=== PATIENT | male | born 1960 | race Caucasian/White ===

== ENCOUNTER 2023-01-03 18:10 | Observation (INO) | payer SELFPAY ==
[2023-01-03 19:14] LABS: Absolute Neutrophil Ct (ANC) 15.61 x10^3/uL (1.4-6.9); BASOPHIL % 0.4 % (0.0-0.4); Basophil (Absolute #) 0.08 x10^3/uL (0-0.4); Eosinophil % 0.7 % (0.00-5.0); Eosinophil (Absolute #) 0.13 x10^3/uL (0-0.5); Hemoglobin 16.6 g/dL (12.5-18.0); IMMATURE GRAN # 0.13 x10^3u/L (0.00-0.03); IMMATURE GRAN % 0.7 % (0.00-0.4); Lymphocyte (Absolute #) 2.65 x10^3/uL (1.0-4.6); Lymphocytes % 13.3 % (24.0-44.0); Mean Cell Volume 83.2 fL (78-100); Mean Corpuscular Hemoglobin 28.2 pg (26-32); Mean Corpuscular Hgb Concent. 33.9 g/dL (32-36); Mean Platelet Volume 8.5 fL (7.5-11.0); Monocyte (Absolute #) 1.28 x10^3/uL (0.0-1.3); Monocytes % 6.4 % (0.0-12.0); Neutrophil % 78.5 % (36.0-66.0); Platelet Count 398 x10^3/uL (150-450); Red Blood Count 5.89 x10^6/uL (4.1-5.6); Red Cell Distribution Width 12.4 % (11.5-14.0); White Blood Count 19.9 x10^3/uL (4.0-10.5)
[2023-01-03 19:19] LABS: ALBUMIN 4.8 g/dL (3.5-5.0); BILIRUBIN,TOTAL 0.9 mg/dL (0.2-1.3); Calcium 9.9 mg/dL (8.4-10.2); Creatinine 1 1.93 mg/dL (0.66-1.25); EST GLOMERULAR FILTRATION RATE 37.7 ML/MIN; Total Protein 8.3 g/dL (6.3-8.2)
--- NOTE | 2023-01-03 20:20 | ERPHSYRPT ---
- History of Present Illness Time Seen by Provider: 01/03/23 20:15 Source: patient Exam Limitations: no limitations Patient Subjective Stated Complaint: PT HERE FOR WEAKNESS TO RIGHT ARM AND LEG STARTED WHILE DRIVING AT 1745. PT UNABLE TO BEAR WT ON RIGHT LEG, RIGHT ARM FL ACCID, SPEECH CLEAR . Triage Nursing Assessment: PT HERE FOR WEAKNESS TO RIGHT SIDE, STATES HAS BEEN OUT IN HEAT TODAY Physician History: Patient initially seen and evaluated by Dr. Corado. Dr. Corado entered the initial orders. NoteHowever Dr. Corado was unable to initiate. Per report patient is [id number] male presents to our ED for evaluation of flaccid paralysis of the right Arm and leg. Symptoms occurred while he was driving at approximately 1740 5 PM. Upon arrival to our ED patient was only unable to bear weight. However within approximately 10 minutes patient began to regain normal function. Patient had no other complaints. No trauma. No fever. No nausea vomiting or diaphoresis. No associated chest pain. Patient voiced no other complaints or concerns. Portions of this note were created with voice recognition technology. There may be grammatical, spelling, punctuation or sound alike errors Timing/Duration: today Severity: moderate Modifying Factors: Improves With: nothing Associated Symptoms: denies symptoms Allergies/Adverse Reactions: No Known Drug Allergies Allergy (Verified 01/03/23 18:13) Home Medications: Lisinopril 20 mg [Zestril 20 MG] 20 mg PO DAILY 01/03/23 [History] Hx Tetanus, Diphtheria Vaccination/Date Given: Yes Hx Influenza Vaccination/Date Given: No Hx Pneumococcal Vaccination/Date Given: No Immunizations Up to Date: Yes Travel Risk - International Travel Have you traveled outside of the country in past 3 weeks: No - Coronavirus Screening Are you exhibiting any of the following symptoms?: No - Vaccine Status Have you recieved a Covid-19 vaccination: No - Review of Systems Constitutional: No Symptoms, No Fever, No Chills Eyes: No Symptoms Ears, Nose, & Throat: No Symptoms Respiratory: No Symptoms, No Cough, No Dyspnea Cardiac: No Symptoms, No Chest Pain, No Edema, No Syncope Abdominal/Gastrointestinal: No Symptoms, No Abdominal Pain, No Nausea, No Vomiting, No Diarrhea Genitourinary Symptoms: No Symptoms, No Dysuria Musculoskeletal: No Symptoms, No Back Pain, No Neck Pain Skin: No Symptoms, No Rash Neurological: No Symptoms, No Dizziness, No Focal Weakness, No Sensory Changes Psychological: No Symptoms Endocrine: No Symptoms Hematologic/Lymphatic: No Symptoms Immunological/Allergic: No Symptoms All Other Systems: Reviewed and Negative - Past Medical History Pertinent Past Medical History: Yes Cardiac History: Hypertension - Past Surgical History Past Surgical History: Yes Gastrointestinal: Hernia Repair Other Surgical History: rt thumb--graft. hannah bilat arms - Social History Smoking Status: Former smoker Exposure to second hand smoke: No Drug Use: none Patient Lives Alone: No - Nursing Vital Signs Nursing Vital Signs: Initial Vital Signs Pulse Rate 62 01/03/23 17:49 Respiratory Rate 21 01/03/23 17:49 Blood Pressure 129/47 01/03/23 17:49 O2 Sat by Pulse Oximetry 58 L 01/03/23 17:49 Pain Scale Pain Intensity 0 - Physical Exam General Appearance: no apparent distress, alert Eye Exam: PERRL/EOMI, eyes nml inspection Ears, Nose, Throat Exam: normal ENT inspection, TMs normal, pharynx normal, moist mucous membranes Neck Exam: normal inspection, non-tender, supple, full range of motion Respiratory Exam: normal breath sounds, lungs clear, airway intact, No respiratory distress Cardiovascular Exam: regular rate/rhythm, normal heart sounds, normal peripheral pulses Gastrointestinal/Abdomen Exam: soft, normal bowel sounds, No tenderness, No mass Back Exam: normal inspection, normal range of motion, No CVA tenderness, No vertebral tenderness Extremity Exam: normal inspection, normal range of motion, pelvis stable Neurologic Exam: alert, oriented x 3, cooperative, normal mood/affect, nml cerebellar function, nml station & gait, sensation nml, No motor deficits Skin Exam: normal color, warm, dry, No rash Lymphatic Exam: No adenopathy SpO2 Interpretation: normal SpO2: 94 O2 Delivery: Room Air - Course Nursing assessment & vital signs reviewed: Yes - CT Exams Head CT Interpretation: Tele-radiologist Report (CT head reveals no comps. Remote lacunar infarct left caudate head nothing acute) Ordered Tests: Active Orders 24 hr Category Date Time Status HEAD WITHOUT CONTRAST [CT] Stat Exams 01/03/23 18:11 Taken BLOOD CULTURE Stat Lab 01/03/23 Ordered CBC W DIFF Stat Lab 01/03/23 19:11 Completed CMP Stat Lab 01/03/23 19:11 Completed TROPONIN Q4H Lab 01/03/23 19:11 Completed TROPONIN Q4H Lab 01/03/23 23:15 Ordered Transfer Order Routine Transfer 01/03/23 Ordered Lab/Rad Data: Laboratory Result Diagrams 01/03/23 19:11 01/03/23 19:11 Laboratory Results 01/03/23 01/03/23 01/03/23 Range/Units 19:11 19:11 19:11 WBC 19.9 H (4.0-10.5) x10^3/uL RBC 5.89 H (4.1-5.6) x10^6/uL Hgb 16.6 (12.5-18.0) g/dL Hct 49.0 (42-50) % MCV 83.2 (78-100) fL MCH 28.2 (26-32) pg MCHC 33.9 (32-36) g/dL RDW 12.4 (11.5-14.0) % Plt Count 398 (150-450) x10^3/uL MPV 8.5 (7.5-11.0) fL Gran % 78.5 H (36.0-66.0) % Immature Gran % (Auto) 0.7 H (0.00-0.4) % Nucleat RBC Rel Count 0.0 (0.00-0.1) % Eos # (Auto) 0.13 (0-0.5) x10^3/uL Immature Gran # (Auto) 0.13 H (0.00-0.03) x10^3u/L Absolute Lymphs (auto) 2.65 (1.0-4.6) x10^3/uL Absolute Monos (auto) 1.28 (0.0-1.3) x10^3/uL Absolute Nucleated RBC 0.00 (0.00-0.01) x10^3u/L Lymphocytes % 13.3 L (24.0-44.0) % Monocytes % 6.4 (0.0-12.0) % Eosinophils % 0.7 (0.00-5.0) % Basophils % 0.4 (0.0-0.4) % Absolute Granulocytes 15.61 H (1.4-6.9) x10^3/uL Basophils # 0.08 (0-0.4) x10^3/uL Sodium 139 (137-145) mmol/L Potassium 4.0 (3.5-5.1) mmol/L Chloride 100 (98-107) mmol/L Carbon Dioxide 27 (22-30) mmol/L Anion Gap 16.0 H (5-15) MEQ/L BUN 19 (9-20) mg/dL Creatinine 1.93 H (0.66-1.25) mg/dL Estimated GFR 37.7 ML/MIN Glucose 140 H (74-106) mg/dL Calcium 9.9 (8.4-10.2) mg/dL Total Bilirubin 0.90 (0.2-1.3) mg/dL AST 30 (17-59) U/L ALT 31 (0-50) U/L Alkaline Phosphatase 84 (38-126) U/L Troponin I < 0.012 (0.000-0.034) ng/mL Serum Total Protein 8.3 H (6.3-8.2) g/dL Albumin 4.8 (3.5-5.0) g/dL - Progress Progress: improved Progress Note: 62-year-old male presents to our ED with flaccid paralysis right upper lower extremity. Symptoms resolved shortly after arriving to our ED. Test ordered include CT head CBC CMP troponin. Patient initially seen and examined by Dr. Corado. Dr. Corado entered the associated orders. CT head reveals a remote lacunar infarct at the left caudate head. CBC reveals a leukocytosis of 19.9. Patient afebrile. The cause of the leukocytosis is unclear. However we ordered blood cultures in the event patient spikes a fever/in the event that there is a infection that has not fully declared itself. CMP reveals a creatinine 1.93. We do not have any previous information so it is unclear whether this is new or patient's baseline. Initial troponin negative.Telemetry neuro was consulted. Per telemetry neuro recommendations patient will be admitted for further evaluation and treatment.Case discussed with Dr. Solano hospitalist who excepts admission at 7:25 PM.Plan of care discussed with patient. He agrees to admission to [facility] for further evaluation and treatment.Patient will receive IV fluids and aspirin. Complexity of problem addressed is moderate acute complicated No critical care time Complexity data reviewed and analyzed is extensive. Test ordered. Test reviewed and analyzed. Clinical correlation made between findings of laboratory work-up CAT scan and physical exam findings. Teleneurologist consulted. I spoke to teleneurology personally regarding the findings and her recommendations. Plan of care also discussed with Dr. Solano hospitalist who excepts admission to observation. Risk of complication and or risk of morbidity/mortality of patient management is high. Patient will require hospitalization for further evaluation and treatme nt of TIA. Patient will be admitted to [facility]. He agrees to plan of care. Vital stable. Time to admit patient is approximately 15 minutes. Plan of care established for shared decision making. Patient voices no other complaints or concerns at this time. 01/03/23 20:20 Discussed with DrAurelio: Other Will see patient in: hospital (observation) Counseled pt/family regarding: lab results, diagnosis, rad results - Departure Departure Disposition: Observation Clinical Impression: TIA (transient ischemic attack), Elevated serum creatinine, Leukocytosis Condition: Stable Critical Care Time: No Referrals: NBA BILL MD [Primary Care Provider] - Follow up/PCP as directed
[2023-01-03] MEDS ORDERED: BABY ASPIRIN 81 MG CHEW PO ONE (20:34)
[2023-01-03] MEDS ORDERED: BABY ASPIRIN 81 MG CHEW ONE (20:37)
[2023-01-03] MEDS: Sodium Chloride 0.9% 1000 ML 1,000 ML IV SCH ×2 (20:38→21:47)
[2023-01-03] MEDS ORDERED: TYLENOL 325 MG PO PRN (20:51)
[2023-01-03] MEDS ORDERED: Senokot-S Tablet PO PRN (20:51)
[2023-01-03] MEDS ORDERED: MAALOX ES 30 ML UNIT DOSE PO PRN (20:51)
[2023-01-03] MEDS ORDERED: Zofran 4 MG/2 ML VIAL IV PRN (20:51)
[2023-01-03] MEDS ORDERED: MILK OF MAGNESIA 30 ML PO PRN (20:51)
[2023-01-03] MEDS ORDERED: VENTOLIN COMMON CANISTER IH PRN (22:05)
--- NOTE | 2023-01-04 00:53 | PCM.HP ---
History of Present Illness - Chief Complaint Chief Complaint: TIA Date: 01/04/23 History of Present Illness: Mr. Sullivan is a 62 year-old gentleman with HTN and a prior CVA who presents with signs and symptoms concerning for a CVA. He states that he was driving after a long day working outside when he suddenly felt his right arm and leg go numb with weakness along with experiencing slurred speech. He had stopped on the side of the road to respond to a text from his son when all this started. Subsequent to his symptoms starting, he lifted his right leg with his left arm in order press on the gas to get to his destination, and eventually he presented to [place] for further medical attention. It was not until after his CT head was completed that his symptoms started to resolve - reason why he did not receive thrombolytic therapy after being evaluated by Neurology. Laboratory data revealed a Cr of 1.93 and a WBC of 19.9K while official CT head read is pending (there is mention of a prior lacunar CVA). On my examination, his symptoms have all resolved, and he currently denies fevers, chills, nausea, vomiting, diarrhea, syncope, presyncope, visual changes, orthopnea, PND, odynophagia, dysphagia, chest pain, shortness of breath, belly pain, dysuria, hematuria, melena, hematochezia, or neurological changes. All other systems were reviewed and were negative. His vitals are stable. - Review of Systems Constitutional: Other (As per HPI) Medications & Allergies Home Medications: Home Medication List Lisinopril 20 mg [Zestril 20 MG] 20 mg PO DAILY 01/03/23 [History Confirmed 01/03/23] Allergies/Adverse Reactions: Allergies Allergy/AdvReac Type Severity Reaction Status Date / Time No Known Drug Allergies Allergy Verified 01/03/23 18:13 - Past Medical History Past Medical History: Yes Neurological History: No Pertinent History ENT History: No Pertinent History Cardiac History: Hypertension Endocrine Medical History: No Pertinent History Musculoskelatal History: No Pertinent History GI Medical History: No Pertinent History History: No Pertinent History Pyscho-Social History: No Pertinent History Male Reproductive Disorders: No Pertinent History - Past Surgical History Past Surgical History: Yes Neuro Surgical History: No Pertinent History Cardiac History: No Pertinent History Respiratory Surgery: No Pertinent History GI Surgical History: Hernia Repair Genitourinary Surgical Hx: No Pertinent History Musculskeletal Surgical Hx: No Pertinent History Male Surgical History: No Pertinent History Other Surgical History: rt thumb--graft. hannah bilat arms - Social History Smoking Status: Never smoker Exposure to second hand smoke: No Alcohol: None Drug Use: none - Physical Exam Vital Signs: Vital Signs - 24 hr Temp Pulse Resp BP BP Pulse Ox 01/03/23 23:52 97.9 F 84 18 122/78 95 01/03/23 22:09 94 L 01/03/23 22:07 94 L 01/03/23 20:59 98.2 F 90 18 177/86 97 01/03/23 20:51 97 01/03/23 20:35 94 L 01/03/23 20:05 58 L 16 183/68 94 L 01/03/23 20:04 61 17 97 01/03/23 20:00 64 19 94 L 01/03/23 19:50 65 21 95 01/03/23 19:40 69 21 94 L 01/03/23 19:30 68 20 95 01/03/23 19:21 76 19 89 L 01/03/23 19:10 61 19 96 01/03/23 19:02 68 18 73 L 01/03/23 18:11 97.2 F 112 H 18 153/83 94 L 01/03/23 17:49 62 21 129/47 58 L General Appearance: no apparent distress, alert Neurologic Exam: alert, oriented x 3, cooperative, normal mood/affect, nml cerebellar function, nml station & gait, sensation nml, No motor deficits Eye Exam: PERRL/EOMI, eyes nml inspection Ears, Nose, Throat Exam: normal ENT inspection, TMs normal, pharynx normal, moist mucous membranes Neck Exam: normal inspection, non-tender, supple, full range of motion Respiratory Exam: normal breath sounds, lungs clear, No respiratory distress Cardiovascular Exam: regular rate/rhythm, normal heart sounds, normal peripheral pulses Gastrointestinal/Abdomen Exam: soft, normal bowel sounds, No tenderness, No mass Back Exam: normal inspection, normal range of motion, No CVA tenderness, No vertebral tenderness Extremity Exam: normal inspection, normal range of motion, pelvis stable Skin Exam: normal color, warm, dry, No rash Lymphatic Exam: No adenopathy Results - Labs Lab/Micro Results: Lab Results-Last 24 Hours 01/03/23 01/03/23 01/03/23 Range/Units 19:11 19:11 19:11 WBC 19.9 H (4.0-10.5) x10^3/uL RBC 5.89 H (4.1-5.6) x10^6/uL Hgb 16.6 (12.5-18.0) g/dL Hct 49.0 (42-50) % MCV 83.2 (78-100) fL MCH 28.2 (26-32) pg MCHC 33.9 (32-36) g/dL RDW 12.4 (11.5-14.0) % Plt Count 398 (150-450) x10^3/uL MPV 8.5 (7.5-11.0) fL Gran % 78.5 H (36.0-66.0) % Immature Gran % (Auto) 0.7 H (0.00-0.4) % Nucleat RBC Rel Count 0.0 (0.00-0.1) % Eos # (Auto) 0.13 (0-0.5) x10^3/uL Immature Gran # (Auto) 0.13 H (0.00-0.03) x10^3u/L Absolute Lymphs (auto) 2.65 (1.0-4.6) x10^3/uL Absolute Monos (auto) 1.28 (0.0-1.3) x10^3/uL Absolute Nucleated RBC 0.00 (0.00-0.01) x10^3u/L Lymphocytes % 13.3 L (24.0-44.0) % Monocytes % 6.4 (0.0-12.0) % Eosinophils % 0.7 (0.00-5.0) % Basophils % 0.4 (0.0-0.4) % Absolute Granulocytes 15.61 H (1.4-6.9) x10^3/uL Basophils # 0.08 (0-0.4) x10^3/uL Sodium 139 (137-145) mmol/L Potassium 4.0 (3.5-5.1) mmol/L Chloride 100 (98-107) mmol/L Carbon Dioxide 27 (22-30) mmol/L Anion Gap 16.0 H (5-15) MEQ/L BUN 19 (9-20) mg/dL Creatinine 1.93 H (0.66-1.25) mg/dL Estimated GFR 37.7 ML/MIN Glucose 140 H (74-106) mg/dL Calcium 9.9 (8.4-10.2) mg/dL Total Bilirubin 0.90 (0.2-1.3) mg/dL AST 30 (17-59) U/L ALT 31 (0-50) U/L Alkaline Phosphatase 84 (38-126) U/L Troponin I < 0.012 (0.000-0.034) ng/mL Serum Total Protein 8.3 H (6.3-8.2) g/dL Albumin 4.8 (3.5-5.0) g/dL 01/03/23 Range/Units 23:26 WBC (4.0-10.5) x10^3/uL RBC (4.1-5.6) x10^6/uL Hgb (12.5-18.0) g/dL Hct (42-50) % MCV (78-100) fL MCH (26-32) pg MCHC (32-36) g/dL RDW (11.5-14.0) % Plt Count (150-450) x10^3/uL MPV (7.5-11.0) fL Gran % (36.0-66.0) % Immature Gran % (Auto) (0.00-0.4) % Nucleat RBC Rel Count (0.00-0.1) % Eos # (Auto) (0-0.5) x10^3/uL Immature Gran # (Auto) (0.00-0.03) x10^3u/L Absolute Lymphs (auto) (1.0-4.6) x10^3/uL Absolute Monos (auto) (0.0-1.3) x10^3/uL Absolute Nucleated RBC (0.00-0.01) x10^3u/L Lymphocytes % (24.0-44.0) % Monocytes % (0.0-12.0) % Eosinophils % (0.00-5.0) % Basophils % (0.0-0.4) % Absolute Granulocytes (1.4-6.9) x10^3/uL Basophils # (0-0.4) x10^3/uL Sodium (137-145) mmol/L Potassium (3.5-5.1) mmol/L Chloride (98-107) mmol/L Carbon Dioxide (22-30) mmol/L Anion Gap (5-15) MEQ/L BUN (9-20) mg/dL Creatinine (0.66-1.25) mg/dL Estimated GFR ML/MIN Glucose (74-106) mg/dL Calcium (8.4-10.2) mg/dL Total Bilirubin (0.2-1.3) mg/dL AST (17-59) U/L ALT (0-50) U/L Alkaline Phosphatase (38-126) U/L Troponin I < 0.012 (0.000-0.034) ng/mL Serum Total Protein (6.3-8.2) g/dL Albumin (3.5-5.0) g/dL - Radiology Impressions Radiology Exams & Impressions: Radiology Procedures Category Date Time Status HEAD WITHOUT CONTRAST [CT] Stat Exams 01/03/23 18:11 Taken - Other Procedures and Tests Respiratory Therapy 01/03/23 22:07 Respiratory Therapy Assessment DAILY 01/03/23 22:23 EKG ROUTINE Assessment/Plan (1) TIA (transient ischemic attack) Current Visit: Yes Status: Acute Assessment & Plan: ASSESSMENT 1. Acute Cerebrovascular Accident 2. Acute vs. Acute on Chronic vs. Chronic Kidney Disease 3. Leukocytosis 4. Hypertension PLAN 1. Fluids 2. ASA daily 3. Lipid panel in AM; statin started 4. CTA Head and Neck 5. MRI 6. Echo with Bubble SQ Heparin/PPI The entirety of this encounter was done via telemedicine Gavin Solano MD Pulmonary and Critical Care Medicine Code(s): G45.9 - TRANSIENT CEREBRAL ISCHEMIC ATTACK, UNSPECIFIED Telemedicine Encounter - Telemedicine Encounter Telemedicine Encounter: The entirety of this encounter was performed via Telemedicine"
[2023-01-04 04:58] LABS: Absolute Neutrophil Ct (ANC) 9.23 x10^3/uL (1.4-6.9); BASOPHIL % 0.6 % (0.0-0.4); Basophil (Absolute #) 0.08 x10^3/uL (0-0.4); Eosinophil % 2.2 % (0.00-5.0); Eosinophil (Absolute #) 0.32 x10^3/uL (0-0.5); Hematocrit 44.8 % (42-50); Hemoglobin 14.9 g/dL (12.5-18.0); IMMATURE GRAN # 0.07 x10^3u/L (0.00-0.03); IMMATURE GRAN % 0.5 % (0.00-0.4); Lymphocyte (Absolute #) 3.78 x10^3/uL (1.0-4.6); Lymphocytes % 26.2 % (24.0-44.0); Mean Cell Volume 83.4 fL (78-100); Mean Corpuscular Hemoglobin 27.7 pg (26-32); Mean Corpuscular Hgb Concent. 33.3 g/dL (32-36); Mean Platelet Volume 8.3 fL (7.5-11.0); Monocyte (Absolute #) 0.96 x10^3/uL (0.0-1.3); Monocytes % 6.6 % (0.0-12.0); Neutrophil % 63.9 % (36.0-66.0); Platelet Count 334 x10^3/uL (150-450); Red Blood Count 5.37 x10^6/uL (4.1-5.6); Red Cell Distribution Width 12.7 % (11.5-14.0); White Blood Count 14.4 x10^3/uL (4.0-10.5)
[2023-01-04 05:33] LABS: ALBUMIN 3.8 g/dL (3.5-5.0); ALKALINE PHOSPHATASE 66 U/L (38-126); ANION GAP 12.8 MEQ/L (5-15); BLOOD UREA NITROGEN 17 mg/dL (9-20); CHLORIDE 103 mmol/L (98-107); Calcium 8.5 mg/dL (8.4-10.2); Carbon Dioxide 27 mmol/L (22-30); Cholesterol 232 mg/dL (50-200); Creatinine 1 1.07 mg/dL (0.66-1.25); EST GLOMERULAR FILTRATION RATE > 60.0 ML/MIN; Glucose 101 mg/dL (74-106); HDL CHOLESTEROL 35 mg/dL (40-60); LDL, DIRECT 159 mg/dL (30-100); MAGNESIUM 2.2 mg/dL (1.6-2.3); Potassium 3.6 mmol/L (3.5-5.1); Risk Ratio 6.7; SGOT/AST 24 U/L (17-59); SGPT/ALT 25 U/L (0-50); SODIUM 139 mmol/L (137-145); TRIGLYCERIDE 153 mg/dL (30-150); Total Protein 6.9 g/dL (6.3-8.2)
[2023-01-04] MEDS: Sodium Chloride 0.9% 1000 ML 1,000 ML IV SCH (07:31)
--- NOTE | 2023-01-04 08:44 | XRAY ---
Indication: Right-sided weakness. Heat stroke. Multiple contiguous axial images obtained through the head without contrast. Comparison: None Several images are slightly degraded by motion artifact. Age-appropriate global atrophy. Remote lacunar infarct left caudate head. No gross acute intracranial hemorrhage, abnormal extra-axial fluid collection, or mass effect. Fourth ventricle is midline without hydrocephalus. Smith-white matter differentiation preserved. Bony calvarium intact. Visualized paranasal sinuses and mastoid air cells are clear. Impression: Motion artifact. Remote lacunar infarct left basal ganglia. No gross acute intracranial abnormalities.
[2023-01-04] MEDS ORDERED: Zestril 20 MG PO SCH (10:00)
[2023-01-04] MEDS ORDERED: BABY ASPIRIN 81 MG CHEW PO SCH (10:00)
[2023-01-04] MEDS ORDERED: HEPARIN 5000 UNITS/0.5 ML (HIGH RISK MED) SQ SCH (10:00)
[2023-01-04] MEDS ORDERED: ECOTRIN 81 MG PO SCH (10:00)
--- NOTE | 2023-01-04 11:17 | XRAY ---
Indication: CVA. Heat stroke. Sagittal, coronal, and axial MRI brain performed using pre-and post T1, T2, FLAIR, diffusion, and ADC sequences. 15 cc Dotarem contrast used. Comparison: None Age-appropriate global atrophy and minimal periventricular degenerative micro-ischemia signal bilaterally. Diffusion images demonstrates a few left parietal and lesser degree bilateral occipital lobe cortical/subcortical petechial restricted signal favoring acute micro-ischemia. Negative for large vessel territory stroke. No acute intracranial hemorrhage, abnormal extra-axial fluid collection. Fourth ventricle is midline without hydrocephalus. 7/8 cranial nerve complex bilaterally symmetric. Normal flow void signal within the major intracerebral circulation. Normal appearing craniocervical junction and sella turcica. Visualized paranasal sinuses are clear. Impression: 1. A few foci acute micro-ischemia left parietal and lesser degree bilateral occipital lobes. No acute hemorrhage/mass effect. 2. Atrophy and degenerative micro-ischemia within normal limits for patient's age.
--- NOTE | 2023-01-04 12:39 | XRAY ---
Indication: TIA. Conventional contrast enhanced CTA neck performed using 80 cc Isovue 370 contrast. 2-D sagittal and coronal reformatted images obtained. Additional 3-D reformatted images obtained using a separate workstation. Comparison: None Visualized aortic arch demonstrates minimal punctate arteriosclerotic calcification without aneurysm/dissection. Widely patent branch right brachiocephalic, left common carotid, and left subclavian arteries. Examination of the right carotid circulation demonstrates widely patent common carotid, carotid bulb, and external carotid arteries. Proximal internal carotid artery demonstrates heterogeneous plaquing producing 80-90% stenosis. Examination of the left carotid circulation demonstrates widely patent common carotid and internal carotid arteries. Carotid bulb demonstrates heterogeneous plaquing producing 70-80% stenosis. This further extends into the origin/proximal external carotid artery producing less than 50% stenosis. Vertebral arteries are bilaterally patent with the right vertebral artery slightly larger in caliber. Visualized soft tissues demonstrates 5 mm right thyroid hypodense nodule/cyst. Parotid and submandibular glands are bilaterally symmetric. Small scattered subcentimeter cervical and submandibular lymph nodes bilaterally. No pathologic lymphadenopathy. Supra-and infraglottic airway widely patent. Normal epiglottis. Lung apices demonstrate pulmonary emphysema. Osseous structures intact with minimal C5-C7 degenerative changes. Patient is edentulous. Impression: 1. Arteriosclerotic disease proximal right internal carotid artery producing 80-90% stenosis. 2. Arteriosclerotic disease left carotid bulb producing 70-80 % stenosis and left external carotid artery producing less than 50% stenosis. 3. Incidental pulmonary emphysema, tiny right thyroid hypodense nodule/cyst, and C5-C7 degenerative changes.
--- NOTE | 2023-01-04 12:45 | XRAY ---
Indication: TIA. Initial CT head performed without contrast. Than conventional contrast enhanced CTA head performed using 80 cc Isovue 370 contrast. 2-D sagittal and coronal reformatted images obtained. Additional 3-D reformatted images obtained using a separate workstation. Comparison: CT head one day earlier. Initial CT head without contrast unchanged again demonstrating age-appropriate global atrophy and remote lacunar infarct left caudate head. No new/acute intracranial abnormalities. CTA demonstrates minimal scattered arteriosclerotic calcifications in both parasellar internal carotid arteries without critical stenosis, obstruction, or AV malformation. Normal carotid terminus with normal branching A1 and M1 segments bilaterally. More distal anterior cerebral, middle cerebral, and posterior communicating arteries are normal in CTA appearance. Posterior circulation demonstrates normal CTA appearance to the basilar, left/right posterior cerebral, left/right superior cerebellar, and left/right anterior inferior cerebellar arteries. Venous sinuses/drainage unremarkable. Brain parenchyma is negative for abnormal enhancing intra or extra-axial mass. Impression: 1. Stable CT head without contrast exam again demonstrating remote lacunar infarct left caudate head. No new/acute intracranial abnormalities. 2. CTA head demonstrates minimal arteriosclerotic calcifications in both parasellar internal carotid arteries without critical stenosis/obstruction. 3. Remaining CTA head is negative.
[2023-01-04 14:47] LABS: Appearance Clear (Clear); Bilirubin Negative (Negative); Blood Moderate (Negative); Glucose, Urine Negative (Negative); Hyaline Casts NONE SEEN /LPF (0-2); Ketones Negative (Negative); Leukocyte Esterase Negative (Negative); Nitrite Negative (Negative); Protein,Urine Dip Negative (Negative); Specific Gravity >=1.030 (1.005-1.030); WBC 0-2 /HPF (0-5)
[2023-01-04 15:07] LABS: ADD URINE CULTURE? NO (NO); Bacteria Rare /HPF (None Seen); Epithelial Cells Rare /HPF (None Seen)
[2023-01-04] MEDS ORDERED: PLAVIX Tablet PO ONE (16:11)
[2023-01-04 16:25] VITALS: BP 180/86; PULSE 87; O2SAT 96
--- NOTE | 2023-01-04 16:34 | PCM.DS ---
Discharge Summary Date of Admission: 01/03/23 20:39 Date of Discharge: 01/04/23 Admitting Physician: NESSA GONZALEZ MD Consults: Consults on Case 01/04/23 11:43 Consult Neurology ROUTINE Primary Care Provider: NBA BILL Allergies Allergies No Known Drug Allergies Allergy (Verified 01/03/23 18:13) Hospital Summary - Hospital Course Hospital Course: CTA reviewed and demonstrated significant bilateral carotid artery stenosis. Teleneurology consultation completed and I have directly discussed the plan of care with the neurologist via telephone. There was an initial recommendation for Holter monitor placement which has been discontinued after noting the CTA results. Due to the patient's significant risk of another vascular event, an attempt was made to transfer the patient to be assessed by vascular surgery for consideration of carotid endarterectomy; however, the patient's transfer was not accepted due to the recommendation for standard outpatient assessment. We have secured an appointment with vascular surgery tomorrow morning. Given that carotid endarterectomy is not immediately being considered, the decision has been made to Plavix load the patient and initiate dual antiplatelet therapy (Plavix 75 mg daily and ASA 81 mg daily), which may need to be suspended prior to any scheduled vascular procedure. I have had an extensive discussion with the patient and multiple family members about this plan, and the patient's high risk for another vascular event. He expressed understanding about the importance of medical compliance, follow up, and immediate reassessment if he experiences any new neurological symptoms. The patient also will be discharged with Zocor 40 mg daily. - Vitals & Intake/Output Vital Signs: Vital Signs Temperature 97.7 F 01/04/23 16:00 Pulse Rate 87 01/04/23 16:00 Respiratory Rate 18 01/04/23 16:00 Blood Pressure 180/86 01/04/23 16:00 O2 Sat by Pulse Oximetry 96 01/04/23 16:00 Intake & Output: Intake & Output 01/02/23 01/03/23 01/04/23 01/05/23 11:59 11:59 11:59 11:59 Intake Total 480 Output Total 100 550 Balance 380 -550 Weight 80.4 kg - Lab Result Diagrams: 01/04/23 04:25 01/04/23 04:25 Lab Results-Last 24 Hrs: Lab Results-Last 24 Hours 01/03/23 01/03/2323 Range/Units 19:11 19:11 19:11 WBC 19.9 H (4.0-10.5) x10^3/uL RBC 5.89 H (4.1-5.6) x10^6/uL Hgb 16.6 (12.5-18.0) g/dL Hct 49.0 (42-50) % MCV 83.2 (78-100) fL MCH 28.2 (26-32) pg MCHC 33.9 (32-36) g/dL RDW 12.4 (11.5-14.0) % Plt Count 398 (150-450) x10^3/uL MPV 8.5 (7.5-11.0) fL Gran % 78.5 H (36.0-66.0) % Immature Gran % (Auto) 0.7 H (0.00-0.4) % Nucleat RBC Rel Count 0.0 (0.00-0.1) % Eos # (Auto) 0.13 (0-0.5) x10^3/uL Immature Gran # (Auto) 0.13 H (0.00-0.03) x10^3u/L Absolute Lymphs (auto) 2.65 (1.0-4.6) x10^3/uL Absolute Monos (auto) 1.28 (0.0-1.3) x10^3/uL Absolute Nucleated RBC 0.00 (0.00-0.01) x10^3u/L Lymphocytes % 13.3 L (24.0-44.0) % Monocytes % 6.4 (0.0-12.0) % Eosinophils % 0.7 (0.00-5.0) % Basophils % 0.4 (0.0-0.4) % Absolute Granulocytes 15.61 H (1.4-6.9) x10^3/uL Basophils # 0.08 (0-0.4) x10^3/uL Sodium 139 (137-145) mmol/L Potassium 4.0 (3.5-5.1) mmol/L Chloride 100 (98-107) mmol/L Carbon Dioxide 27 (22-30) mmol/L Anion Gap 16.0 H (5-15) MEQ/L BUN 19 (9-20) mg/dL Creatinine 1.93 H (0.66-1.25) mg/dL Estimated GFR 37.7 ML/MIN Glucose 140 H (74-106) mg/dL Calcium 9.9 (8.4-10.2) mg/dL Magnesium (1.6-2.3) mg/dL Total Bilirubin 0.90 (0.2-1.3) mg/dL AST 30 (17-59) U/L ALT 31 (0-50) U/L Alkaline Phosphatase 84 (38-126) U/L Troponin I < 0.012 (0.000-0.034) ng/mL Serum Total Protein 8.3 H (6.3-8.2) g/dL Albumin 4.8 (3.5-5.0) g/dL Triglycerides (30-150) mg/dL Cholesterol (50-200) mg/dL LDL Cholesterol (30-100) mg/dL HDL Cholesterol (40-60) mg/dL Heart Disease Risk Ratio Urine Color (Yellow) Urine Appearance (Clear) Urine pH (4.6-8.0) Ur Specific Watson (1.005-1.030) Urine Protein (Negative) Urine Glucose (UA) (Negative) mg/dL Urine Ketones (Negative) Urine Blood (Negative) Urine Nitrite (Negative) Urine Bilirubin (Negative) Urine Urobilinogen (0.2) mg/dL Ur Leukocyte Esterase (Negative) U Hyaline Cast (Auto) (0-2) /LPF Urine Microscopic RBC (0-5) /HPF Urine Microscopic WBC (0-5) /HPF Ur Epithelial Cells (None Seen) /HPF Urine Bacteria (None Seen) /HPF Urine Culture Reflexed (NO) 01/03/23 01/04/23 01/04/23 Range/Units 23:26 04:25 04:25 WBC 14.4 H (4.0-10.5) x10^3/uL RBC 5.37 (4.1-5.6) x10^6/uL Hgb 14.9 (12.5-18.0) g/dL Hct 44.8 (42-50) % MCV 83.4 (78-100) fL MCH 27.7 (26-32) pg MCHC 33.3 (32-36) g/dL RDW 12.7 (11.5-14.0) % Plt Count 334 (150-450) x10^3/uL MPV 8.3 (7.5-11.0) fL Gran % 63.9 (36.0-66.0) % Immature Gran % (Auto) 0.5 H (0.00-0.4) % Nucleat RBC Rel Count 0.0 (0.00-0.1) % Eos # (Auto) 0.32 (0-0.5) x10^3/uL Immature Gran # (Auto) 0.07 H (0.00-0.03) x10^3u/L Absolute Lymphs (auto) 3.78 (1.0-4.6) x10^3/uL Absolute Monos (auto) 0.96 (0.0-1.3) x10^3/uL Absolute Nucleated RBC 0.00 (0.00-0.01) x10^3u/L Lymphocytes % 26.2 (24.0-44.0) % Monocytes % 6.6 (0.0-12.0) % Eosinophils % 2.2 (0.00-5.0) % Basophils % 0.6 (0.0-0.4) % Absolute Granulocytes 9.23 H (1.4-6.9) x10^3/uL Basophils # 0.08 (0-0.4) x10^3/uL Sodium 139 (137-145) mmol/L Potassium 3.6 (3.5-5.1) mmol/L Chloride 103 (98-107) mmol/L Carbon Dioxide 27 (22-30) mmol/L Anion Gap 12.8 (5-15) MEQ/L BUN 17 (9-20) mg/dL Creatinine 1.07 (0.66-1.25) mg/dL Estimated GFR > 60.0 ML/MIN Glucose 101 (74-106) mg/dL Calcium 8.5 (8.4-10.2) mg/dL Magnesium 2.2 (1.6-2.3) mg/dL Total Bilirubin 0.70 (0.2-1.3) mg/dL AST 24 (17-59) U/L ALT 25 (0-50) U/L Alkaline Phosphatase 66 (38-126) U/L Troponin I < 0.012 (0.000-0.034) ng/mL Serum Total Protein 6.9 (6.3-8.2) g/dL Albumin 3.8 (3.5-5.0) g/dL Triglycerides 153 H (30-150) mg/dL Cholesterol 232 H (50-200) mg/dL LDL Cholesterol 159 H (30-100) mg/dL HDL Cholesterol 35 L (40-60) mg/dL Heart Disease Risk Ratio 6.7 Urine Color (Yellow) Urine Appearance (Clear) Urine pH (4.6-8.0) Ur Specific Watson (1.005-1.030) Urine Protein (Negative) Urine Glucose (UA) (Negative) mg/dL Urine Ketones (Negative) Urine Blood (Negative) Urine Nitrite (Negative) Urine Bilirubin (Negative) Urine Urobilinogen (0.2) mg/dL Ur Leukocyte Esterase (Negative) U Hyaline Cast (Auto) (0-2) /LPF Urine Microscopic RBC (0-5) /HPF Urine Microscopic WBC (0-5) /HPF Ur Epithelial Cells (None Seen) /HPF Urine Bacteria (None Seen) /HPF Urine Culture Reflexed (NO) 01/04/23 Range/Units 14:27 WBC (4.0-10.5) x10^3/uL RBC (4.1-5.6) x10^6/uL Hgb (12.5-18.0) g/dL Hct (42-50) % MCV (78-100) fL MCH (26-32) pg MCHC (32-36) g/dL RDW (11.5-14.0) % Plt Count (150-450) x10^3/uL MPV (7.5-11.0) fL Gran % (36.0-66.0) % Immature Gran % (Auto) (0.00-0.4) % Nucleat RBC Rel Count (0.00-0.1) % Eos # (Auto) (0-0.5) x10^3/uL Immature Gran # (Auto) (0.00-0.03) x10^3u/L Absolute Lymphs (auto) (1.0-4.6) x10^3/uL Absolute Monos (auto) (0.0-1.3) x10^3/uL Absolute Nucleated RBC (0.00-0.01) x10^3u/L Lymphocytes % (24.0-44.0) % Monocytes % (0.0-12.0) % Eosinophils % (0.00-5.0) % Basophils % (0.0-0.4) % Absolute Granulocytes (1.4-6.9) x10^3/uL Basophils # (0-0.4) x10^3/uL Sodium (137-145) mmol/L Potassium (3.5-5.1) mmol/L Chloride (98-107) mmol/L Carbon Dioxide (22-30) mmol/L Anion Gap (5-15) MEQ/L BUN (9-20) mg/dL Creatinine (0.66-1.25) mg/dL Estimated GFR ML/MIN Glucose (74-106) mg/dL Calcium (8.4-10.2) mg/dL Magnesium (1.6-2.3) mg/dL Total Bilirubin (0.2-1.3) mg/dL AST (17-59) U/L ALT (0-50) U/L Alkaline Phosphatase (38-126) U/L Troponin I (0.000-0.034) ng/mL Serum Total Protein (6.3-8.2) g/dL Albumin (3.5-5.0) g/dL Triglycerides (30-150) mg/dL Cholesterol (50-200) mg/dL LDL Cholesterol (30-100) mg/dL HDL Cholesterol (40-60) mg/dL Heart Disease Risk Ratio Urine Color Yellow (Yellow) Urine Appearance Clear (Clear) Urine pH 5.0 (4.6-8.0) Ur Specific Watson >=1.030 A (1.005-1.030) Urine Protein Negative (Negative) Urine Glucose (UA) Negative (Negative) mg/dL Urine Ketones Negative (Negative) Urine Blood Moderate A (Negative) Urine Nitrite Negative (Negative) Urine Bilirubin Negative (Negative) Urine Urobilinogen 1.0 A (0.2) mg/dL Ur Leukocyte Esterase Negative (Negative) U Hyaline Cast (Auto) NONE SEEN (0-2) /LPF Urine Microscopic RBC 3-5 (0-5) /HPF Urine Microscopic WBC 0-2 (0-5) /HPF Ur Epithelial Cells Rare (None Seen) /HPF Urine Bacteria Rare A (None Seen) /HPF Urine Culture Reflexed NO (NO) - Radiology Exams Ordered Rad Exams-Entire Visit: Radiology Procedures Category Date Time Status CT ANGIOGRAPHY NECK [CT] Urgent Exams 01/04/23 01:09 Completed CTA HEAD W AND/OR WO CONTRAST [CT] Routine Exams 01/04/23 00:57 Completed ECHO W/2D AND DOPPLER [US] Routine Exams 01/04/23 00:58 Taken HEAD WITHOUT CONTRAST [CT] Stat Exams 01/03/23 18:11 Completed MRI BRAIN W & W/O CONTRAST [MRI] Routine Exams 01/04/23 00:57 Completed - Procedures and Test Procedures and Tests throughout Hospitalization: Therapy Orders & Screens 01/03/23 22:07 Respiratory Therapy Assessment DAILY Comment: Diagnosis: TIA 01/03/23 22:23 EKG ROUTINE Comment: Diagnosis: TIA 01/05/23 05:00 EKG ROUTINE Comment: Diagnosis: TIA 01/06/23 05:00 EKG ROUTINE Comment: Diagnosis: TIA Discharge Exam General Appearance: no apparent distress, alert Neurologic Exam: alert, oriented x 3, cooperative, 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, normal mood/affect, nml cerebellar function, nml station & gait Eye Exam: PERRL, EOMI, eyes nml inspection Ears, Nose, Throat Exam: normal ENT inspection Neck Exam: normal inspection, non-tender, supple, full range of motion Respiratory Exam: normal breath sounds, lungs clear Cardiovascular Exam: regular rate/rhythm, normal heart sounds Gastrointestinal/Abdomen Exam: soft Back Exam: normal range of motion Extremity Exam: normal inspection, normal range of motion Skin Exam: normal color Final Diagnosis/Problem List - Final Discharge Diagnosis/Problem (1) TIA (transient ischemic attack) Current Visit: Yes Status: Acute Assessment & Plan: Plan as documented in clinical course section. Code(s): G45.9 - TRANSIENT CEREBRAL ISCHEMIC ATTACK, UNSPECIFIED Telemedicine Encounter - Telemedicine Encounter Telemedicine Encounter: The entirety of this encounter was performed via Telemedicine" - Discharge Disposition: Home, Self-Care Condition: Stable Prescriptions: New Clopidogrel Bisulfate [Clopidogrel] 75 mg PO DAILY #30 tablet Simvastatin 40 mg PO QHS #30 tablet Continue Lisinopril 20 mg [Zestril 20 MG] 20 mg PO DAILY Follow up with: Raul Enciso [Other] - 01/05/23 9:30 am NBA BILL MD [Primary Care Provider] - 01/10/23 1:45 am
== END 2023-01-04 17:25 | disposition home or self-care (01) ==
LOC: ED 18:10 → MED SURG 20:39
PROVIDERS: ADMIT Internal Medicine Critical Care Medicine; ATTEND Family Medicine
DX: G45.9 Transient cerebral ischemic attack, unspecified (principal); I12.9 Hypertensive chronic kidney disease with stage 1 through stage 4 chronic kidney disease, or unspecified chronic kidney disease; N18.9 Chronic kidney disease, unspecified; D72.829 Elevated white blood cell count, unspecified; Z79.899 Other long term (current) drug therapy; Z20.828 Contact with and (suspected) exposure to other viral communicable diseases; Z86.73 Personal history of transient ischemic attack (TIA), and cerebral infarction without residual deficits
CPT/HCPCS: 36415; 70450; 70496; 70498; 70553; 80053; 80061; 81001; 83721; 83735; 84484; 85025; 87040; 93005; 93268; 93306; 94760; 94762; 99285; J1644; Q3014; A9270-GY; G0378